=== PATIENT | female | born 1935 | race Caucasian/White ===

== ENCOUNTER 2019-08-10 18:41 | Emergency (ER) | payer MEDICARE ==
[~2019-08-10] VITALS: Ht 152.4 cm; Wt 66.2 kg
--- NOTE | 2019-08-10 19:13 | NUR ---
BIB FAMILY FOR C/O R SHOULDER PAIN . DENIED ANY HX OR RECENT FALL, INJURY OR ACCIDENT.
--- NOTE | 2019-08-10 19:21 | NUR ---
DR. CM AT THE BED SIDE
[2019-08-10] MEDS ORDERED: ACETAMINOPHEN ES 500 MG TABLET ONE (19:42)
[2019-08-10] MEDS ORDERED: KETOROLAC TROMETHAMINE 15 MG/ML VIAL ONE (19:42)
[2019-08-10] MEDS: KETOROLAC TROMETHAMINE INJ 30 MG/ML VIAL IV ONE (19:59)
[2019-08-10] MEDS: ACETAMINOPHEN ES 500 MG TABLET PO ONE (19:59)
[2019-08-10 20:05] LABS: BASOPHILS # (AUTO) 0.1 /CMM (0.0-0.2); BASOPHILS % (AUTO) 0.7 % (0.0-2.0); EOSINOPHILS % (AUTO) 0.4 % (0.0-6.0); HEMATOCRIT 36 % (33-45); HEMOGLOBIN 11.6 g/dL (11.5-14.8); LYMPHOCYTES # (AUTO) 1.4 /CMM (0.8-4.8); LYMPHOCYTES % (AUTO) 11.5 % (20.0-44.0); MEAN CORPUSCULAR HGB CONC 32 g/dl (31.0-36.0); MEAN CORPUSCULAR VOLUME 85 fL (82-100); MONOCYTES # (AUTO) 0.6 /CMM (0.1-1.30); MONOCYTES % (AUTO) 5.2 % (2.0-12.0); NEUTROPHILS # (AUTO) 9.7 /CMM (1.8-8.9); NEUTROPHILS % (AUTO) 82.2 % (43.0-81.0); PLATELET COUNT (AUTO) 231 /CMM (150-450); RED BLOOD CELL COUNT(AUTO) 4.24 MIL/uL (4.0-5.2); WHITE BLOOD COUNT (AUTO) 11.8 K/uL (4.3-11.0)
[2019-08-10 20:23] LABS: CALCIUM, SERUM 9.2 mg/dL (8.5-10.1); CREATININE 1.3 mg/dL (0.6-1.3); POTASSIUM 4.6 mmol/L (3.5-5.1)
[2019-08-10 20:30] LABS: ALBUMIN 3.3 g/dL (3.4-5.0); BILIRUBIN,DIRECT 0.1 mg/dL (0.0-0.2); BILIRUBIN,TOTAL 0.4 mg/dL (0.2-1.0); TOTAL PROTEIN, SERUM 8.1 g/dL (6.4-8.2)
--- NOTE | 2019-08-10 21:45 | NUR ---
IV removed. Catheter intact and site benign. Pressure and 4x4 applied to site. No bleeding noted.Patient discharged to home in stable condition. Written and verbal after care instructions given. Patient verbalizes understanding of instruction. pt was provided w/ a R shoulder slilng upon d/c
[2019-08-10 21:56] VITALS: BP 149/78
== END 2019-08-10 21:56 | disposition home or self-care (01) ==
LOC: ER 18:43
DX: M11.211 Other chondrocalcinosis, right shoulder (principal); M25.511 Pain in right shoulder; I10 Essential (primary) hypertension; E11.9 Type 2 diabetes mellitus without complications; Z90.89 Acquired absence of other organs; Z85.3 Personal history of malignant neoplasm of breast
CPT/HCPCS: 36415; 71045; 73030; 80048; 80076; 82550; 84484; 85025; 93005; 96374; 99284; J1885